=== PATIENT | female | born 1985 | race Caucasian/White ===

== ENCOUNTER → 2017-04-29 | Outpatient (CLI) | payer OTHER ==
[~2017-04-29] MED LIST: BCPILLS PO; ETON1IMP2 IM; LISI-787 PO; META1TAB22 PO; SUMA50TA15 PO; VENL1CAP92 PO
[2017-04-29 15:13] LABS: ALT/SGPT 22 U/L (12-78); AST/SGOT 10 U/L (15-37); BLOOD UREA NITROGEN 15 mg/dl (7-18); BUN/CREATININE RATIO 19.5 (10-20); CALCIUM 9.5 mg/dl (8.5-10.1); CARBON DIOXIDE 28 mmol/L (21-32); CHLORIDE 104 mmol/L (98-107); CREATININE 0.76 mg/dl (0.60-1.20); GLUCOSE 95 mg/dl (70-99); POTASSIUM 4.5 mmol/L (3.5-5.1); SODIUM 140 mmol/L (136-145)
[2017-04-29 15:17] LABS: ALB/GLOB RATIO 1.3 (0.9-2); ALKALINE PHOSPHATASE 152 U/L (45-117); CHOLESTEROL 189 mg/dl (0-200); CHOLESTEROL/HDL RATIO 3.6; HDL CHOLESTEROL 52 mg/dl; LDL CHOLESTEROL CALCULATED 121 mg/dl; TRIGLYCERIDES 81 mg/dl (0-150); VERY LOW DENSITY LIPOPROT CALC 16 mg/dl
== END | disposition home or self-care (01) ==
LOC: C.LABSPEC 13:58
PROVIDERS: ATTEND Family Medicine
DX: Z13.220 Encounter for screening for lipoid disorders (principal); Z13.228 Encounter for screening for other metabolic disorders

== ENCOUNTER 2017-05-26 21:17 | Emergency (ER) | payer OTHER ==
[~2017-05-26] VITALS: Ht 167.6 cm; Wt 129.8 kg
[~2017-05-26 21:17] MED LIST changes: -ETON1IMP2 IM; -LISI-787 PO; -VENL1CAP92 PO
[2017-05-26 21:22] VITALS: Ht 167.6 cm; Wt 129.8 kg
[2017-05-26] MEDS ORDERED: SODIUM CHLORIDE 0.9% 1000ML 1,000 ML IV STA (21:31)
[2017-05-26] MEDS ORDERED: ONDANSETRON INJ 2 MG/ML 2 ML VIAL IV STA (21:31)
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
[2017-05-26] MEDS ORDERED: MoRPHine SULFATE 2 MG/ML CARP ONE ×4 (21:37→23:11)
[2017-05-26] MEDS: MoRPHine SULFATE 10 MG/ML CARP/VIAL IV PRN ×4 (21:40→23:16)
[2017-05-26] MEDS ORDERED: AMPICILLIN/SULBACTAM SOD INJ 3,000 MG in SODIUM CHLORIDE 0.9% 100ML 100 ML IV ONE (21:45)
[2017-05-26] MEDS ORDERED: ETON1IMP2 IM (21:57)
[2017-05-26] MEDS ORDERED: VENL1CAP92 PO (21:57)
[2017-05-26] MEDS ORDERED: LISI-787 PO (21:57)
[2017-05-26 22:08] LABS: HEMATOCRIT 41.6 % (37-47); MEAN CELL VOLUME 86.8 fL (80-100); MEAN CORPUSCULAR HEMOGLOBIN 28.8 pg (25-34); MEAN CORPUSCULAR HGB CONC 33.2 g/dl (32-36); MEAN PLATELET VOLUME 9.8 fL (7.4-10.4); PLATELET COUNT 307 K/uL (130-400); RED BLOOD COUNT 4.79 M/uL (4.2-5.4); WHITE BLOOD COUNT 13.15 K/uL (4.8-10.8)
[2017-05-26 22:25] LABS: ALT/SGPT 15 U/L (12-78); BLOOD UREA NITROGEN 13 mg/dl (7-18); BUN/CREATININE RATIO 15.1 (10-20); CALCIUM 9.1 mg/dl (8.5-10.1); CARBON DIOXIDE 25 mmol/L (21-32); CHLORIDE 107 mmol/L (98-107); CREATININE 0.83 mg/dl (0.60-1.20); GLUCOSE 119 mg/dl (70-99); POTASSIUM 3.8 mmol/L (3.5-5.1); SODIUM 139 mmol/L (136-145)
[2017-05-26 22:28] LABS: ALKALINE PHOSPHATASE 142 U/L (45-117); AST/SGOT 12 U/L (15-37)
[2017-05-26 22:44] LABS: PREG INTERNAL NEGATIVE QC NEG CLEAR BACKGROUND; PREG INTERNAL POSITIVE QC POS CONTROL LINE
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
[2017-05-26] MEDS ORDERED: MoRPHine SULFATE 4 MG/ML 1 ML CARP\\VIAL ONE (23:12)
--- NOTE | 2017-05-26 23:41 | EMERGENCY ROOM VISIT NOTE ---
Pre-Mod Sedation Assessment General Date of Moderate Sedation: May 26, 2017. Vital Signs: Vital Signs Past 12 Hours Date Time Temp Pulse Resp B/P (MAP) Pulse Ox O2 Delivery O2 Flow Rate FiO2 05/26/17 23:10 93 20 140/106 96 Room Air 05/26/17 21:22 36.6 131 16 146/94 93 Room Air Review Cardiovascular: no gallop, no murmur, + tachycardia Abdomen: normal bowel sounds, non tender, soft Lungs: chest non-tender, lungs clear, normal breath sounds, no respiratory distress Airway Class: I Pre-Sedation Airway Assessment Oral Cavity: WNL Able to Visualize Vocal Cords: No Short Thick Neck: No Hx of Sleep Apnea: No Smoking Status: Never Smoker Mallampati Classification: Class I Procedure Planning Contraindications-for Mod Sed: None Yes Notes The planned sedation has been discussed with the patient and consent obtained. I have identified the patient, determined the appropriateness of sedation and have assessed the patient immediately prior to the procedure. All medicine(s) and interventions are by my order.
[2017-05-26] MEDS ORDERED: PROPOFOL IV EMULSION 10 MG/ML 20 ML VIAL IV ONE (23:43)
[2017-05-26 23:47] VITALS: BP 152/131; PULSE 120; TEMP 36.6; O2SAT 100
[2017-05-26 23:53] VITALS: BP 137/98; PULSE 115; O2SAT 100
[2017-05-26 23:55] VITALS: BP 137/98; PULSE 115; O2SAT 100
[2017-05-27] VITALS (14 sets, daily range): BP systolic 122–147; BP diastolic 76–114; PULSE 83–120; TEMP 37; O2SAT 96–100
[2017-05-27] MEDS ORDERED: KETAMINE HCL INJ 50 MG/ML 10 ML VIAL ONE (00:03)
[2017-05-27] MEDS ORDERED: FENTANYL CITRATE INJ 50 MCG/1 ML 2 ML VIAL ONE (00:26)
[2017-05-27] MEDS ORDERED: ONDANSETRON INJ 2 MG/ML 2 ML VIAL ONE (00:36)
[2017-05-27] MEDS ORDERED: PROMETHAZINE HCL INJ 6.25 MG in SODIUM CHLORIDE 0.9% 50ML 50 ML IV STA (00:42)
--- NOTE | 2017-05-27 00:43 | EMERGENCY ROOM VISIT NOTE ---
Post-Moderate Sedation Plan General Date of Moderate Sedation May 27, 2017. Vital Signs: Vital Signs Past 12 Hours Date Time Temp Pulse Resp B/P (MAP) Pulse Ox O2 Delivery O2 Flow Rate FiO2 05/26/17 23:55 115 20 137/98 100 Nasal Cannula 3.0 05/26/17 23:53 115 20 137/98 100 Nasal Cannula 3.0 05/26/17 23:50 104 05/26/17 23:47 36.6 120 18 152/131 100 Room Air 05/26/17 23:10 93 20 140/106 96 Room Air 05/26/17 21:22 36.6 131 16 146/94 93 Room Air Review - Discharge Plan Post Moderate Sedation Plan: On clinical assessment, the patient appears to have tolerated the conscious sedation without complications. Patient is recovering as anticipated. Patient will continue to be monitored by nursing and may be discharged when conscious sedation discharge criteria are met.
[2017-05-27] MEDS ORDERED: MoRPHine SULFATE 4 MG/ML 1 ML CARP\\VIAL ONE (02:18)
[2017-05-27] MEDS ORDERED: MoRPHine SULFATE 2 MG/ML CARP ONE (02:18)
[2017-05-27] MEDS: MoRPHine SULFATE 10 MG/ML CARP/VIAL IV PRN (02:24)
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
--- NOTE | 2017-05-27 06:28 | DIAGNOSTIC IMAGING REPORT ---
RIGHT KNEE 1 OR 2 VIEWS ROUTINE HISTORY: 31 years-old Female Post-Reduction of right knee; verbal order from Dr. Avery Right comminuted proximal tibial fracture status post reduction. COMPARISON: Right knee radiographs of same day TECHNIQUE: Frontal and lateral views of the right knee FINDINGS: Comminuted proximal tibial fracture is again noted with fracture lines extending into the medial aspect of the lateral tibial plateau, lateral aspect of the medial tibial plateau and bilateral tibial spines. There is displacement of approximately 2.0 cm of the fracture fragments medially. There is 1.4 cm of posterior displacement. There is mildly improved angulation and displacement status post reduction. Comminuted nondisplaced proximal fibular fracture seen. Large lipohemarthrosis is present with moderate soft tissue swelling. IMPRESSION: 1. Comminuted displaced intra-articular proximal tibial fracture as above demonstrates improved alignment with persistent displacement status post reduction. 2. Comminuted nondisplaced proximal fibular fracture. 3. Large lipohemarthrosis with moderate soft tissue swelling. The above report was generated using voice recognition software. It may contain grammatical, syntax or spelling errors. Electronically signed by: Rex Zaragoza M.D. 05/27/2017 6:26 AM Dictated Date/Time: 05/27/2017 6:22 AM
--- NOTE | 2017-05-27 06:48 | DIAGNOSTIC IMAGING REPORT ---
RIGHT KNEE 1 OR 2 VIEWS ROUTINE HISTORY: 31 years-old Female Right knee in plaster; verbal order from Dr. Avery Right status post reduction and casting of comminuted proximal tibial fracture. COMPARISON: Right knee radiographs of same day TECHNIQUE: Frontal and lateral views of the right knee. FINDINGS: Status post casting. Acute comminuted and displaced fracture of the proximal tibia is again seen with fracture lines extending into the lateral aspect medial tibial plateau and medial aspect lateral tibial plateau as well as into the bilateral tibial spines. There is medial displacement of approximately 2.0 cm with apex lateral angulation of approximately 20 degrees involving the medial fracture fragment. Alignment is unchanged from most recent comparison status post reduction. Additionally, there is mild cortical irregularity and fragmentation involving the lateral femoral condyle compatible with acute fracture. Comminuted nondisplaced proximal fibular fracture is seen. Large joint effusion with moderate soft tissue swelling. IMPRESSION: 1. Status post casting and reduction of comminuted displaced and angulated intra-articular proximal tibial fracture. 2. Mild cortical irregularity and fragmentation of the lateral aspect lateral femoral condyle compatible with acute fracture. 3. Acute comminuted nondisplaced proximal fibular fracture. The above report was generated using voice recognition software. It may contain grammatical, syntax or spelling errors. Electronically signed by: Rex Zaragoza M.D. 05/27/2017 6:47 AM Dictated Date/Time: 05/27/2017 6:43 AM
== END 2017-05-27 02:25 | disposition short-term general hospital (02) ==
LOC: EDBD 21:17 → C.EDA 21:19 → C.ED 05-27 02:25
DX: S82.131A Displaced fracture of medial condyle of right tibia, initial encounter for closed fracture (principal); V86.99XA Unspecified occupant of other special all-terrain or other off-road motor vehicle injured in nontraffic accident, initial encounter; Y92.89 Other specified places as the place of occurrence of the external cause; F41.9 Anxiety disorder, unspecified; F32.9 Major depressive disorder, single episode, unspecified; Z85.43 Personal history of malignant neoplasm of ovary; I10 Essential (primary) hypertension; Z79.899 Other long term (current) drug therapy